=== PATIENT | male | born 1995 | race African-American/Black ===

== ENCOUNTER 2018-04-07 08:45 | Emergency (ER) | payer BC ==
[2018-04-07] MEDS ORDERED: NS 0.9% 500 ML* 500 ML IV ONE (09:20)
[2018-04-07] MEDS ORDERED: Metoclopramide IV* 5 MG/ML 2 ML VIAL IV ONE (09:21)
[2018-04-07] MEDS ORDERED: Pantoprazole IV* 40 MG IV ONE (09:21)
[2018-04-07 09:46] LABS: ABS Basophils 0.1 10^3/ul (0-0.2); ABS Eosinophils 0.1 10^3/ul (0-0.6); ABS Lymphocytes 1.6 10^3/ul (1.0-4.8); ABS Monocytes 0.5 10^3/ul (0-0.8); ABS Neutrophils 9.3 10^3/ul (1.5-7.7); ABS Nucleated RBC 0 10^3/ul; Eosinophil % 1.1 % (0-6); Hematocrit 47 % (42-52); Hemoglobin 16.5 g/dl (14.0-18.0); Lymphocyte % 13.6 % (25-47); Mean Corpuscular HGB Conc 35 g/dl (31-36); Mean Corpuscular Hemoglobin 32 pg (27-31); Mean Corpuscular Volume 90 fL (80-94); Mean Platelet Volume 8.2 um3 (7.4-10.4); Nucleated Red Blood Cells % 0; Platelet Count 252 10^3/ul (150-450); Red Blood Count 5.24 10^6/ul (4.00-5.40); Red Cell Distribution Width 14 % (10.5-15); White Blood Count 11.6 10^3/ul (3.5-10.8)
[2018-04-07 10:00] LABS: INR 0.94 (0.77-1.02)
--- NOTE | 2018-04-07 10:15 | ED ---
GI/ HPI - HPI Summary HPI Summary: A 25 y/o male presents to the ED c/o blood in his vomit since 07:00 today. He reports drinking alcohol last night. The patient had 3 vomiting episodes with the last being at 08:00. The first vomit had dark red color that he thought could be related to his diet but then the second and third vomit had bright red blood so he wanted to be checked out. The patient states he drank alcohol last night but remembers everything. He denies taking ibuprofen or any history of gastric ulcer. - History of Current Complaint Chief Complaint: EDNauseaVomitDiarrh Time Seen by Provider: 04/07/18 08:52 Stated Complaint: VOMITING BLOOD Hx Obtained From: Patient Onset/Duration: Started Hours Ago Timing: Intermittent - 3 vomiting episodes, Lasting Hours Severity: Moderate Current Severity: Moderate Pain Intensity: 3 - out of 10 Location of Pain: RLQ Associated Signs and Symptoms: Positive: Nausea - Allergy/Home Medications Allergies/Adverse Reactions: Allergies Allergy/AdvReac Type Severity Reaction Status Date / Time No Known Allergies Allergy Verified 04/07/18 09:08 PMH/Surg Hx/FS Hx/Imm Hx Endocrine/Hematology History: Denies: Hx Diabetes Cardiovascular History: Denies: Hx Cardiac Arrest Opthamlomology History: Denies: Hx Legally Blind - Immunization History Immunizations Up to Date: Yes Infectious Disease History: No Infectious Disease History: Denies: Traveled Outside the [place] in Last 30 Days - Family History Known Family History: Positive: Diabetes Negative: Cardiac Disease, Hypertension - Social History Alcohol Use: Rare Substance Use Type: Reports: None Hx Tobacco Use: No Smoking Status (MU): Never Smoked Tobacco Review of Systems Negative: Fever Positive: Abdominal Pain - RLQ, Vomiting, Nausea, Other - Positive: hematemesis All Other Systems Reviewed And Are Negative: Yes Physical Exam - Summary Physical Exam Summary: GENERAL: Patient is a well-developed and nourished Male who is lying comfortable in the stretcher. Patient is not in any acute respiratory distress. HEAD AND FACE: Normocephalic EYES: PERRLA, EOMI x 2. EARS: Hearing grossly intact. MOUTH: Oropharynx within normal limits. NECK: Supple, trachea is midline, no adenopathy, no JVD, no carotid bruit. CHEST: Symmetric, no tenderness at palpation LUNGS: Clear to auscultation bilaterally. No wheezing or crackles. CVS: Regular rate and rhythm, S1 and S2 present, no murmurs or gallops appreciated. ABDOMEN: Soft, non-tender. Bowel sounds are normal. No abdominal abnormal pulsations. EXTREMITIES: Full ROM in all major joints, no edema, no cyanosis or clubbing. NEURO: Alert and oriented x 3. No acute neurological deficits. Speech is normal and follows commands. SKIN: Dry and warm Triage Information Reviewed: Yes Vital Signs On Initial Exam: Initial Vitals Temp Pulse Resp BP Pulse Ox 98.8 F 116 16 121/72 98 04/07/18 08:48 04/07/18 08:48 04/07/18 08:48 04/07/18 08:48 04/07/18 08:48 Vital Signs Reviewed: Yes Diagnostics - Vital Signs Vital Signs Temp Pulse Resp BP Pulse Ox 04/07/18 08:48 98.8 F 116 16 121/72 98 - Laboratory Lab Results: Lab Results 04/07/18 04/07/18 04/07/18 Range/Units 09:30 09:30 09:30 WBC 11.6 H (3.5-10.8) 10^3/ul RBC 5.24 (4.00-5.40) 10^6/ul Hgb 16.5 (14.0-18.0) g/dl Hct 47 (42-52) % MCV 90 (80-94) fL MCH 32 H (27-31) pg MCHC 35 (31-36) g/dl RDW 14 (10.5-15) % Plt Count 252 (150-450) 10^3/ul MPV 8.2 (7.4-10.4) um3 Neut % (Auto) 80.3 (38-83) % Lymph % (Auto) 13.6 L (25-47) % [place] % (Auto) 4.6 (0-7) % Eos % (Auto) 1.1 (0-6) % Baso % (Auto) 0.4 (0-2) % Absolute Neuts (auto) 9.3 H (1.5-7.7) 10^3/ul Absolute Lymphs (auto) 1.6 (1.0-4.8) 10^3/ul Absolute Monos (auto) 0.5 (0-0.8) 10^3/ul Absolute Eos (auto) 0.1 (0-0.6) 10^3/ul Absolute Basos (auto) 0.1 (0-0.2) 10^3/ul Absolute Nucleated RBC 0 10^3/ul Nucleated RBC % 0 INR (Anticoag Therapy) 0.94 (0.77-1.02) APTT 24.7 L (26.0-36.3) seconds Sodium 140 (135-145) mmol/L Potassium 4.1 (3.5-5.0) mmol/L Chloride 102 (101-111) mmol/L Carbon Dioxide 26 (22-32) mmol/L Anion Gap 12 H (2-11) mmol/L BUN 23 (6-24) mg/dL Creatinine 1.04 (0.67-1.17) mg/dL Est GFR ( Amer) 110.2 (>60) Est GFR (Non-Af Amer) 91.0 (>60) BUN/Creatinine Ratio 22.1 H (8-20) Glucose 82 (70-100) mg/dL Calcium 9.3 (8.6-10.3) mg/dL Total Bilirubin 0.40 (0.2-1.0) mg/dL AST 25 (13-39) U/L ALT 15 (7-52) U/L Alkaline Phosphatase 71 (34-104) U/L Total Protein 7.9 (6.4-8.9) g/dL Albumin 4.6 (3.2-5.2) g/dL Globulin 3.3 (2-4) g/dL Albumin/Globulin Ratio 1.4 (1-3) Serum Alcohol Pending Result Diagrams: 04/07/18 09:30 04/07/18 09:30 Lab Statement: Any lab studies that have been ordered have been reviewed, and results considered in the medical decision making process. - Radiology CXR Radiology Interpretation Completed By: Radiologist Summary of Radiographic Findings: Elevated lung volumes may reflect obstructive lung disease or simply exuberant inspiratory effort for examination. No radiographic evidence for pneumonia or presence of a suspicious focal pulmonary lesion. This report has been reviewed by the ED physician. GIGU Course/Dx - Course Course Of Treatment: A 25 y/o male presents to the ED c/o blood in his vomit since 07:00 today. His CXR revealed: Elevated lung volumes may reflect obstructive lung disease or simply exuberant inspiratory effort for examination. No radiographic evidence for pneumonia or presence of a suspicious focal pulmonary lesion. Workup is rearkable to EtOH:99, WBC:11.6, Bun/creat: 22.1. Pt was diagnosed with alchohol gastritis. He was given a by mouth trial here in the emergency room and tolerated it without difficulty. Patient had no episode of vomiting while here in the emergency room. The patient will be discharged. I discussed results with patient and he reports feeling better. He is hemodynamically stable and safe for discharge. Strict return precautions given and he will otherwise follow up with his PCP. - Diagnoses Provider Diagnoses: Alcoholic gastritis Discharge - Sign-Out/Discharge Documenting (check all that apply): Patient Departure - DC - Discharge Plan Condition: Stable Disposition: HOME Prescriptions: Ondansetron [Zofran Odt] 4 mg PO TID #12 tab.rapdis Pantoprazole TAB (NF) [Protonix TAB (NF)] 20 mg PO DAILY #30 tab Patient Education Materials: Ondansetron (By mouth), Pantoprazole (By mouth), Hematemesis (ED) Referrals: [facility] [Outside] (1-3 days) [facility] REFERRAL [Outside] (1-3 days) Additional Instructions: Follow up with your primary care physician in 1-3 days. RETURN TO THE EMERGENCY DEPARTMENT FOR CHANGING OR WORSENING SYMPTOMS - Billing Disposition and Condition Condition: STABLE Disposition: Home - Attestation Statements Document Initiated by Scribe: Yes Documenting Scribe: Leon Dinh Provider For Whom Scribe is Documenting (Include Credential): Emile Bolivar MD Scribe Attestation: I, Leon Dinh, scribed for Emile Bolivar MD on 04/07/18 at 1332. Scribe Documentation Reviewed: Yes Provider Attestation: The documentation as recorded by the Leon blanco accurately reflects the service I personally performed and the decisions made by me, Yomaira Bolivar MD
--- NOTE | 2018-04-07 10:39 | RAD ---
INDICATION: Cough up blood. COMPARISON: No relevant prior exams available on the [facility] P[facility] for comparison. TECHNIQUE: Dual energy PA and routine lateral views of the chest were obtained. REPORT: Elevated lung volumes. No focal pulmonary lesion, compelling alveolar consolidation, pleural effusion, pneumothorax. The heart, pulmonary vasculature, and mediastinal contours are unremarkable. No pneumomediastinum evident. Negative for free air beneath the diaphragm. Unremarkable soft tissue contours and osseous structures. IMPRESSION: #. Elevated lung volumes may reflect obstructive lung disease or simply exuberant inspiratory effort for examination. #. No radiographic evidence for pneumonia or presence of a suspicious focal pulmonary lesion.
[2018-04-07 11:30] VITALS: BP 116/56
== END 2018-04-07 11:30 | disposition home or self-care (01) ==
LOC: ED 08:45
DX: K29.20 Alcoholic gastritis without bleeding (principal)
CPT/HCPCS: 36415; 71046; 80053; 80320; 85025; 85610; 85730; 86850; 86900; 86901; 96361; 96374; 96375; 99282; G0480; J2765